=== PATIENT | female | born 1995 | race Caucasian/White ===

== ENCOUNTER 2017-05-20 11:07 | Emergency (ER) | payer BC ==
[2017-05-20 11:28] VITALS: BP 118/68
[2017-05-20] MEDS ORDERED: predniSONE TAB* 20 MG PO ONE (11:56)
[2017-05-20] MEDS ORDERED: HYDROcodone/ACETAMIN 5-325 MG* 1 TAB PO ONE (11:56)
[2017-05-20] MEDS ORDERED: Ibuprofen TAB* 600 MG PO ONE (11:56)
--- NOTE | 2017-05-20 11:57 | ED ---
Back Pain - HPI Summary HPI Summary: 21 female presents with complaints of lower back pain that started last night after pushing an empty suitcase. Patient has a history of a herniated disc that was diagnosed by MRI 6 months ago. She had an epidural at this time done by Dr Nichols that completely relieved her pain for the past 6 months. However yesterday the same pain returned. States it is sharp and aches. Also admits to spasms. She is unable to move positions without excruciating pain. Laying on her stomach with legs apart is the most comfortable position. She was given advil, tylenol and toradol last episode that did not give her any relief. Denies numbness/tingling, bladder/bowel incontinence and saddle anesthesia. Denies weakness. Has also tried heat and ice without relief. Has not had any follow up. Denies any recent trauma or injury. She was told she may have early degenerative disc disease. Denies any other PMHx. Currently taking control. - History of Current Complaint Chief Complaint: EDBackInjuryPain Stated Complaint: BACK PAIN Time Seen by Provider: 05/20/17 11:19 Hx Obtained From: Patient Onset/Duration: Sudden Onset, Lasting Days - 2 Onset/Duration: Started Days Ago - yesterday Back Pain Location: Is Discrete @ - low back L4-L5 Severity Initially: Severe Severity Currently: Severe Pain Intensity: 9 Pain Scale Used: 0-10 Numeric Character: Sharp, Aching, Spasmodic Aggravating Symptom(s): Movement Alleviating Symptom(s): Position Associated Signs And Symptoms: Positive: Negative. Negative: Swelling, Bruising , Weakness, Numbness, Tingling, Bladder Incontinence, Bowel Incontinence, Weight Loss - Risk Factors AAA Risk Factors: Negative Cauda Equina Risk Factors: Negative Epidural Abscess Risk Factors: Negative - Allergies/Home Medications Allergies/Adverse Reactions: Allergies Allergy/AdvReac Type Severity Reaction Status Date / Time MUSSELS -CLAMS Allergy Vomiting Uncoded 09/28/16 14:32 PMH/Surg Hx/FS Hx/Imm Hx Endocrine/Hematology History: Denies: Hx Diabetes Cardiovascular History: Denies: Hx Hypertension, Hx Pacemaker/ICD History: Denies: Hx Renal Disease Sensory History: Denies: Hx Hearing Aid Neurological History: Reports: Other Neuro Impairments/Disorders - PAIN CLINIC PT Psychiatric History: Denies: Hx Panic Disorder - Surgical History Surgery Procedure, Year, and Place: none - Immunization History Immunizations Up to Date: Yes Infectious Disease History: Denies: Traveled Outside the [place] in Last 30 Days - Family History Known Family History: Positive: None - Social History Alcohol Use: None Substance Use Type: Reports: None Smoking Status (MU): Never Smoked Tobacco Review of Systems Constitutional: Negative Cardiovascular: Negative Respiratory: Negative Gastrointestinal: Negative Positive: Arthralgia, Myalgia - low back Skin: Negative Neurological: Negative Psychological: Normal All Other Systems Reviewed And Are Negative: Yes Physical Exam Triage Information Reviewed: Yes Vital Signs On Initial Exam: Initial Vitals Temp Pulse Resp BP Pulse Ox 98.0 F 97 16 117/91 96 05/20/17 11:15 05/20/17 11:15 05/20/17 11:15 05/20/17 11:15 05/20/17 11:15 Vital Signs Reviewed: Yes Appearance: Positive: Well-Appearing, Pain Distress - moderate- severe with movement Skin: Positive: Warm, Skin Color Reflects Adequate Perfusion, Dry. Negative: Cold, Numb, Tender, Erythema @, Cold Injury Head/Face: Positive: Normal Head/Face Inspection Eyes: Positive: Normal, Conjunctiva Clear ENT: Positive: Hearing grossly normal Neck: Positive: Supple, Nontender Respiratory/Lung Sounds: Positive: Clear to Auscultation, Breath Sounds Present. Negative: Rales, Rhonchi, Wheezes Cardiovascular: Positive: Normal, RRR, Pulses are Symmetrical in both Upper and Lower Extremities. Negative: Murmur, Rub Abdomen Description: Positive: Nontender, No Organomegaly, Soft. Negative: Bruit, Distended, Guarding, Pulsatile Mass Bowel Sounds: Positive: Present Musculoskeletal: Positive: Limited @ - with changing positions, flexing/ extending and rotation of back, due to pain. Negative: Interruption @ - no sign of crepitus or obvious deformity or step off., Pain @ - no pain on palpation of lower L2-L5 region Neurological: Positive: Normal, Sensory/Motor Intact - sensation intact, Alert, Oriented to Person Place, Time, CN Intact II-III, Reflexes Intact, NV Bundle Intact Distally, Abnormal Gait - limping due to pain Psychiatric: Positive: Normal AVPU Assessment: Alert Diagnostics - Vital Signs Vital Signs Temp Pulse Resp BP Pulse Ox 05/20/17 11:25 98 F 70 18 118/68 100 05/20/17 11:15 98.0 F 97 16 117/91 96 - Laboratory Lab Statement: Any lab studies that have been ordered have been reviewed, and results considered in the medical decision making process. Re-Evaluation - Re-Evaluation First Eval Re-Evaluation Time: 13:14 Change: Improved Comment: had significant improvement after morphine and valium Back Pain Course/Dx - Course Course Of Treatment: due to known history of herniated disc and no known trauma or recent injury no imaging necessary at this time. patient was unable to sit up to take pain medication due to pain so given IV pain management, steroid and muscle relaxer. had some relief. Told to rest, heat/ice, pain medications at home and call to have another epidural with [facility] on Monday. Also given referral to Dr Gutierrez for follow up and further evaluation. Aware of worsening signs and symptoms to watch out for and return immediately if occur. Treat for chronic back pain, herniated disc history. - Diagnoses Differential Diagnosis/HQI/PQRI: Positive: Herniated Disc, Strain, Sprain Provider Diagnoses: Back pain at L4-L5 level, History of herniated intervertebral disc Discharge - Discharge Plan Condition: Stable Disposition: HOME Prescriptions: HYDROcodone/ACETAMIN 5-325 MG* [Vance 5-325 TAB*] 1 - 2 tab PO Q4H PRN #24 tab MDD 6 PRN Reason: Pain Ibuprofen TAB* [Motrin TAB* 600 MG] 600 mg PO Q8H PRN #20 tab PRN Reason: Pain predniSONE TAB* [Deltasone TAB*] 40 mg PO DAILY #8 tab Patient Education Materials: Back Pain (ED), Lumbar Disc Herniation (ED) Referrals: Perfecto Gutierrez MD [Medical Doctor] - Mignon Nicohls MD [Medical Doctor] - Additional Instructions: Take prescribed medications as directed. Rest and continue ice/heat. Call and make an appointment with Dr Nichols's office for further treatment such as epidural first thing Monday morning. Follow up with PCP. If you develop worsening signs and symptoms such as numbness/tingling, saddle anesthesia, and bladder/bowel incontinence please return to ER immediately.
[2017-05-20] MEDS ORDERED: Diazepam SYRINGE* 5 MG/ML SYRINGE IV ONE (12:21)
[2017-05-20] MEDS ORDERED: Morphine INJ* 2 MG/ML 1 ML SYRINGE IV ONE ×2 (12:21→13:29)
[2017-05-20] MEDS ORDERED: Dexamethasone IV* 4 MG/ML 1 ML (4 MG) IV SLOW PU ONE (12:22)
== END 2017-05-20 15:00 | disposition home or self-care (01) ==
LOC: ED 11:07
DX: M54.9 Dorsalgia, unspecified (principal)
CPT/HCPCS: 96374; 96375; 99283; A9270-GY; J1100; J2270; J3360; J7512

== ENCOUNTER 2019-03-14 18:52 | Emergency (ER) | payer BC ==
--- NOTE | 2019-03-14 21:06 | ED ---
Headache - HPI Summary HPI Summary: Pt is a 23 y/o female who presents to the ED c/o headache. About 1 month ago she had a mild concussion that produced a constant headache. Pts headache was slowly resolving, however a few days ago it began to worsen. Today at 12:00 her headache severely worsened, now rated a 10/10 in severity. Her headache is diffuse and gradually came on. Pt also c/o nausea, nasal pain, tooth pain, and neck pain. She denies any blurry vision or diplopia. She denies any hx of migraines, however she has a FHx of migraines. She denies any FHx of brain tumors or aneurysms. LNMP 01/26/19, pt is on control. - History Of Current Complaint Chief Complaint: EDHeadache Stated Complaint: MIGRAINE AND NAUSEA PER PT Time Seen by Provider: 03/14/19 21:01 Hx Obtained From: Patient Onset/Duration: Gradual Onset, Started weeks ago - About 1 month ago, Worse Since Currently Pain Is: Severe - 10/10 Timing: Constant Location of Headache: Diffuse Associated Signs And Symptoms: Nausea, Neck Pain Related History: Recent Trauma: - mild concussion about 1 month ago - Allergies/Home Medications Allergies/Adverse Reactions: Allergies Allergy/AdvReac Type Severity Reaction Status Date / Time cat dander Allergy Eyes Verified 03/14/19 19:04 Itchy/Swollen/Red/Watery dust Allergy Eyes Uncoded 03/14/19 19:04 Itchy/Swollen/Red/Watery MUSSELS -CLAMS Allergy Vomiting Uncoded 05/29/17 08:53 PMH/Surg Hx/FS Hx/Imm Hx Endocrine/Hematology History: Denies: Hx Diabetes Cardiovascular History: Denies: Hx Hypertension, Hx Pacemaker/ICD History: Denies: Hx Renal Disease Musculoskeletal History: Reports: Hx Back Problems Sensory History: Denies: Hx Hearing Aid Neurological History: Reports: Other Neuro Impairments/Disorders - PAIN CLINIC PT, concussion Denies: Hx Migraine Psychiatric History: Denies: Hx Panic Disorder - Surgical History Surgery Procedure, Year, and Place: none Infectious Disease History: No Infectious Disease History: Denies: Traveled Outside the [place] in Last 30 Days - Family History Known Family History: Positive: Other - migraine, NEGATIVE: brain tumor, aneurysm - Social History Alcohol Use: None Hx Substance Use: No Substance Use Type: Reports: None Hx Tobacco Use: No Smoking Status (MU): Never Smoked Tobacco Have You Smoked in the Last Year: No Review of Systems Negative: Blurred Vision, Diplopia Positive: Dental Pain, Other - nasal pain Positive: Nausea Positive: Myalgia - neck pain Positive: Headache All Other Systems Reviewed And Are Negative: Yes Physical Exam - Summary Physical Exam Summary: Appearance: well appearing, no pain distress Skin: warm, dry, reflects adequate perfusion Head/face: normal, no temporal artery tenderness Eyes: EOMI, NÉSTOR, globes soft ENT: mucous membranes moist Neck: supple, non-tender Respiratory: CTA, breath sounds present Cardiovascular: RRR, pulses symmetrical Abdomen: non-tender, soft Bowel Sounds: present Musculoskeletal: normal, strength/ROM intact Neuro: normal, sensory motor intact, A&Ox3 Triage Information Reviewed: Yes Vital Signs On Initial Exam: Initial Vitals Temp Pulse Resp BP Pulse Ox 98.4 F 95 16 146/89 98 03/14/19 19:00 03/14/19 19:00 03/14/19 19:00 03/14/19 19:00 03/14/19 19:00 Vital Signs Reviewed: Yes Diagnostics - Vital Signs Vital Signs Temp Pulse Resp BP Pulse Ox 03/14/19 19:00 98.4 F 95 16 146/89 98 - Laboratory Lab Statement: Any lab studies that have been ordered have been reviewed, and results considered in the medical decision making process. Re-Evaluation - Re-Evaluation First Eval Re-Evaluation Time: 21:50 Change: Improved Comment: Pt feels much better after the medications and fluids. Headache Course/Dx - Course Course Of Treatment: Nurse's notes reviewed. Patient presents with global headache that came on slowly with no high-risk features. Her head was feeling much better after medications and she was discharged with no discomfort. Follow -[facility] with [facility]. - Diagnoses Differential Diagnosis/HQI/PQRI: Meningitis, Migraine, Subarachnoid Hemorrhage, Tension Headache Provider Diagnoses: Acute headache Discharge - Sign-Out/Discharge Documenting (check all that apply): Patient Departure - Discharge Patient Received Moderate/Deep Sedation with Procedure: No - Discharge Plan Condition: Improved Disposition: HOME Prescriptions: Promethazine TAB* [Phenergan Tab*] 25 mg PO Q8H PRN #20 tab PRN Reason: headache/nausea Patient Education Materials: Acute Headache (ED) Referrals: [facility] - Marcio DE DIOS [Primary Care Provider] - Additional Instructions: Prescribed medication can cause drowsiness. Do not drive while taking. If headaches are severe you can take ibuprofen, Benadryl and some caffeine with this. Also stay well-hydrated. Return with fever, uncontrolled headache, vomiting, worse, new symptoms or other concerns. Follow-up with Critical access hospital. - Billing Disposition and Condition Condition: IMPROVED Disposition: Home - Attestation Statements Document Initiated by Lelo: Yes Documenting Scribe: Hortencia Valdez Provider For Whom Lelo is Documenting (Include Credential): Willy Coronado MD Scribe Attestation: Hortencia Anguiano, scribed for Willy Coronado MD on 03/14/19 at 2236. Scribe Documentation Reviewed: Yes Provider Attestation: The documentation as recorded by the Hortencia silver accurately reflects the service I personally performed and the decisions made by me, Willy Coronado MD Status of Scribe Document: Viewed
[2019-03-14] MEDS ORDERED: Ketorolac INJ* 30 MG/ML 1 ML VIAL IV PUSH ONE (21:08)
[2019-03-14] MEDS ORDERED: Metoclopramide IV* 5 MG/ML 2 ML VIAL IV ONE (21:08)
[2019-03-14] MEDS ORDERED: diPHENhydraMINE IV* 50 MG/ML 1 ml VIAL (BENADRYL) IV ONE (21:08)
[2019-03-14] MEDS ORDERED: NS 0.9% 1000 ML** 1,000 ML IV ONE (21:09)
[2019-03-14 22:04] VITALS: BP 117/71
== END 2019-03-14 22:04 | disposition home or self-care (01) ==
LOC: ED 18:52
DX: R51 Headache (principal)
CPT/HCPCS: 96361; 96374; 96375; 99282; J1200; J1885; J2765